=== PATIENT | male | born 1970 | race Two or more races ===

== ENCOUNTER 2022-12-20 22:11 | Emergency (ER) | payer SELFPAY ==
[2022-12-20] MEDS ORDERED: Aspirin 81 MG Tab.Chew PO ONE (22:14)
[2022-12-20 22:50] LABS: CARBON DIOXIDE,CO2 26.5 mmol/L (21.0-32.0); POTASSIUM,K 3.3 mmol/L (3.5-5.1)
[2022-12-20] MEDS ORDERED: Potassium Chloride 10% 20 MEQ/15 ML Soln 30 ML UD Cup PO ONE (23:05)
[2022-12-20] MEDS ORDERED: Lactated Ringers 1,000 ML IV STA (23:05)
[2022-12-21] MEDS ORDERED: Famotidine 20 MG Tab PO ONE (02:04)
[2022-12-21] MEDS ORDERED: Alum Hydro/Mag Hydro/Simeth XS 15 ML, Lidocaine 2% 5 ML PO ONE ×2 (02:04)
== END 2022-12-21 02:15 | disposition home or self-care (01) ==
LOC: MW.ED 22:11
DX: R07.89 Other chest pain (principal); Z20.822 Contact with and (suspected) exposure to COVID-19
CPT/HCPCS: 36415; 71045; 80053; 83605; 83735; 84484; 85025; 85379; 85610; 87635; 93005; 96360; 99285; A9270; J7120; U0002

== ENCOUNTER 2023-04-27 01:46 | Emergency (ER) | payer MEDICAID ==
[2023-04-27] MEDS ORDERED: LORazepam 1 MG Tab PO ONE (02:01)
[2023-04-27 03:03] LABS: A/G RATIO 0.8 (0.9-1.6); ALBUMIN 3.4 g/dL (3.4-5.0); BILIRUBIN TOTAL 0.5 mg/dL (0.2-1.0); CALCIUM 8.4 mg/dL (8.5-10.1); CARBON DIOXIDE,CO2 28.5 mmol/L (21.0-32.0); CREATININE 1.2 mg/dL (0.8-1.3); EST CRCL DRUG DOSING (CG) 76.69 mL/min; PROTEIN TOTAL,TP 7.7 g/dL (6.4-8.2)
[2023-04-27] MEDS ORDERED: Ibuprofen 400 MG Tab PO ONE (03:29)
[2023-04-27] MEDS ORDERED: Acetaminophen 325 MG Tab PO ONE (03:29)
== END 2023-04-27 03:55 | disposition home or self-care (01) ==
LOC: MW.ED 01:46
DX: F41.9 Anxiety disorder, unspecified (principal); I10 Essential (primary) hypertension
CPT/HCPCS: 36415; 70450; 80053; 84484; 93005; 99284; A9270

== ENCOUNTER 2023-07-14 14:20 | Emergency (ER) | payer SELFPAY ==
[2023-07-14] MEDS ORDERED: Sodium Chloride 0.9% 2.5 ML Syringe FLUSH PRN (15:34)
[2023-07-14] MEDS ORDERED: Sodium Chloride 0.9% 10 ML Syringe FLUSH PRN (15:34)
[2023-07-14 16:01] LABS: BASOPHILS PERCENT AUTO 0.2 % (0.0-1.5); EOSINOPHILS ABSOLUTE AUTO 0.1 K/uL (0.0-0.7); HEMATOCRIT 48.5 % (38.0-50.0); HEMOGLOBIN 16.9 g/dL (13.0-17.0); LYMPHOCYTES PERCENT AUTO 19.7 % (16.0-40.0); MEAN CORPUSCULAR HEMOGLOBIN 29.8 pg (27.0-32.0); MEAN CORPUSCULAR HGB CONC 34.8 g/dL (31.0-37.0); MEAN CORPUSCULAR VOLUME 85.5 fL (80.0-98.0); MONOCYTES ABSOLUTE AUTO 0.3 K/uL (0.0-0.8); NEUTROPHILS ABSOLUTE AUTO 3.7 K/uL (1.4-5.7); NEUTROPHILS PERCENT AUTO 73.1 % (48.0-80.0); NRBC ABSOLUTE 0 K/uL; PLATELET COUNT,PLT 249 K/uL (150-400); RED BLOOD CELL COUNT 5.67 M/uL (4.50-5.90); WHITE BLOOD CELL COUNT,WBC 5.03 K/uL (4.0-11.0)
[2023-07-14 16:17] LABS: A/G RATIO 0.8 (0.9-1.6); ALANINE AMINOTRANSFERASE,ALT 124 IU/L (14-63); ALBUMIN 3.7 g/dL (3.4-5.0); ALKALINE PHOSPHATASE 77 U/L (46-116); ASPARTATE AMNIOTRANSFERASE,AST 53 IU/L (15-37); BILIRUBIN TOTAL 0.5 mg/dL (0.2-1.0); BLOOD UREA NITROGEN,BUN 11 mg/dL (7.0-18.0); CALCIUM 9.2 mg/dL (8.5-10.1); CARBON DIOXIDE,CO2 27.9 mmol/L (21.0-32.0); CHLORIDE,CL 101 mmol/L (98-107); CREATININE 1.3 mg/dL (0.8-1.3); EST CRCL DRUG DOSING (CG) 69.99 mL/min; GLUCOSE RANDOM 108 mg/dL (74-106); PROTEIN TOTAL,TP 8.6 g/dL (6.4-8.2); SODIUM,NA 137 mmol/L (136-148)
[2023-07-14 16:23] LABS: ESTIMATED GFR 66 mL/min (>60)
[2023-07-14 16:27] LABS: AMPHETAMINES SCREEN, URINE NEGATIVE (CUTOFF=500); BARBITURATE SCREEN,URINE NEGATIVE (CUTOFF=200); BENZODIAZEPINES SCREEN,URINE NEGATIVE (CUTOFF=150); BUPRENORPHINE SCREEN,URINE NEGATIVE (CUTOFF=10); METHADONE SCREEN, URINE NEGATIVE (CUTOFF=200); METHAMPHETAMINES SCREEN, URINE NEGATIVE (CUTOFF=500); OXYCODONE SCREEN,URINE NEGATIVE (CUT0FF=100); PCP SCREEN,URINE NEGATIVE (CUTOFF=25); PROPOXYPHENE SCREEN,URINE NEGATIVE (CUTOFF=300); THC SCREEN,URINE 20 NG/ML NEGATIVE (CUTOFF=50)
[2023-07-14] MEDS ORDERED: Ibuprofen 600 MG Tab PO ONE (17:40)
== END 2023-07-14 18:05 | disposition home or self-care (01) ==
LOC: MW.ED 14:20
DX: R42 Dizziness and giddiness (principal); F41.9 Anxiety disorder, unspecified; R74.8 Abnormal levels of other serum enzymes; R51.9 Headache, unspecified; Z86.16 Personal history of COVID-19
CPT/HCPCS: 36415; 80053; 80305-QW; 84484; 85025; 93005; 93010; 99283; 99285; A9270-GY; J3490

== ENCOUNTER 2023-08-13 19:16 | Emergency (ER) | payer SELFPAY ==
[2023-08-13] MEDS ORDERED: Ketorolac 30 MG/ML SDV IVPUSH ONE (21:12)
[2023-08-13] MEDS ORDERED: Sodium Chloride 0.9% 1,000 ML IV ONE (21:12)
[2023-08-13 21:29] LABS: BASOPHILS ABSOLUTE AUTO 0.01 K/uL (0.00-0.20); BASOPHILS PERCENT AUTO 0.1 % (0.0-1.0); EOSINOPHILS ABSOLUTE AUTO 0.09 K/uL (0.00-0.45); EOSINOPHILS PERCENT AUTO 1.1 % (0.0-6.0); HEMATOCRIT 45.4 % (42.0-52.0); HEMOGLOBIN 15.9 g/dL (14.0-18.0); LYMPHOCYTES ABSOLUTE AUTO 1.31 K/uL (1.00-4.80); LYMPHOCYTES PERCENT AUTO 16.5 % (24.0-44.0); MEAN CORPUSCULAR HEMOGLOBIN 29.4 pg (28.0-32.0); MEAN CORPUSCULAR VOLUME 83.9 fL (83.0-99.0); MEAN PLATELET VOLUME 9.5 fL (9.4-12.4); MONOCYTES PERCENT AUTO 7.5 % (0.0-8.0); NEUTROPHILS ABSOLUTE AUTO 5.9 K/uL (1.8-7.7); NEUTROPHILS PERCENT AUTO 74.7 % (41.0-71.0); PLATELET COUNT,PLT 229 K/uL (150-400); RED BLOOD CELL COUNT 5.41 M/uL (4.52-5.90); WHITE BLOOD CELL COUNT,WBC 7.96 K/uL (3.9-11.3)
[2023-08-13 22:07] LABS: A/G RATIO 0.7 (0.9-1.6); ALBUMIN 3.7 g/dL (3.4-5.0); BILIRUBIN TOTAL 0.8 mg/dL (0.2-1.0); C-REACTIVE PROTEIN 3.29 mg/dL (<0.3); CALCIUM 8.8 mg/dL (8.5-10.1); CARBON DIOXIDE,CO2 25.2 mmol/L (21.0-32.0); CREATININE 1.4 mg/dL (0.8-1.3); EST CRCL DRUG DOSING (CG) 64.99 mL/min; POTASSIUM,K 3.8 mmol/L (3.5-5.1); PROTEIN TOTAL,TP 8.8 g/dL (6.4-8.2)
[2023-08-13 22:08] LABS: CORONAVIRUS COVID-19 NAA POSITIVE (NEGATIVE); INFLUENZA A NAA NEGATIVE (NEGATIVE); INFLUENZA B NAA NEGATIVE (NEGATIVE)
[2023-08-13 22:12] LABS: LACTIC ACID 1.4 mmol/L (0.4-2.0)
[2023-08-13] MEDS ORDERED: Acetaminophen 325 MG Tab PO ONE (23:01)
[2023-08-13] MEDS ORDERED: HYDROmorphone 1 MG/ML Syringe IVPUSH ONE (23:01)
[2023-08-14 01:01] LABS: BODY FLUID TYPE SYN
[2023-08-14 01:41] LABS: RBC,BODY FLUID 68000 /uL
[2023-08-14] MEDS ORDERED: cefTRIAXone 2 GM in Sodium Chloride 0.9% 50 ML IV ONE (01:44)
[2023-08-14 02:00] LABS: COLOR,BODY FLUID RED
[2023-08-14] MEDS ORDERED: VANCOmycin 2 GM/400 ML 2 GM in Premix Bag 1 BAG IV ONE (02:00)
[2023-08-14 02:01] LABS: WBC BODY FLUID 3560 /uL
[2023-08-14 02:04] LABS: APPEARANCE,BODY FLUID BLOODY
[2023-08-14 03:06] LABS: GLUCOSE,BODY FLUID 121 mg/dL; PROTEIN,BODY FLUID 4.3 g/dL
[2023-08-14 03:47] LABS: BODY FLUID TYPE SYN
== END 2023-08-14 03:52 | disposition home or self-care (01) ==
LOC: MW.ED 19:16
DX: U07.1 COVID-19 (principal); Z86.16 Personal history of COVID-19
CPT/HCPCS: 0240U; 36415; 73562; 80053; 82945; 83605; 84157; 84550; 84560; 85025; 85652; 86140; 87040; 87205; 89050; 89060; 96361; 96365; 96375; 99283; A9270; J0696; J1170; J1885; J3490; J7030; 99284